=== PATIENT | male | born 1955 | race Hispanic/Latino ===

== ENCOUNTER 2017-12-16 11:01 | Emergency (ER) | payer OTHER ==
[2017-12-16 11:15] VITALS: BMI 19.6
[2017-12-16] MEDS ORDERED: Tdap Vaccine 0.5 ml Vial (10-64 yrs) IM ONE ×2 (11:49→12:57)
[2017-12-16] MEDS ORDERED: Piperacillin/Tazobact 4.5 GM in Sodium Chloride 0.9% 100 ML IVPB ONE (12:00)
[2017-12-16] MEDS ORDERED: Sodium Chloride 0.9% 1,000 ML IV SCH (12:00)
[2017-12-16] MEDS ORDERED: Oxycodone/Acetaminophen 5/325 mg Tab PO STA (12:15)
--- NOTE | 2017-12-16 12:26 | ED PDOC ---
Lower Extremity Pain/Injury Time Seen by Provider: 12/16/17 11:20 Chief Complaint (Nursing): Lower Extremity Problem/Injury Chief Complaint (Provider): Lower Extremity Problem/Injury History Per: Patient History/Exam Limitations: no limitations Onset/Duration Of Symptoms: Days Current Symptoms Are (Timing): Still Present Severity: Severe Additional Complaint(s): Mike Kim is a 62 year old male with a past medical history of COPD who was brought to the ED by EMS for evaluation of worsening left foot and leg pain, onset 2 weeks ago. Patient states that the pain is worsened when bearing weight and reports that he noted a foul smell and wound discharge coming from left toes. Otherwise, patient offers no other medical complaints at this time. Of note, patient is homeless and lives in a halfway. --pt reports occasional non-productive cough (likely due to chronic smoking habit) --pt denied dizziness/lightheadedness, no LOC --pt denied nausea/vomiting/chills/fevers/sweats/abdominal pain --pt denied sob/chest pain/palpitations --pt denied numbness/tingling/urinary or bowel changes --pt denied fall/trauma/sick contact, no travel --pt is here for further eval --no other complaints noted PCP: none? Past Medical History Reviewed: Historical Data, Nursing Documentation, Vital Signs Vital Signs: Last Vital Signs Temp 99.5 F 12/16/17 11:07 Pulse 122 H 12/16/17 11:07 Resp 16 12/16/17 11:07 BP 133/72 12/16/17 11:07 Pulse Ox 94 L 12/16/17 11:07 - Medical History PMH: Arthritis, COPD (09-15-17), Pneumonia Denies: Chronic Kidney Disease - Surgical History Surgical History: Hernia Repair - Family History Family History: States: Unknown Family Hx - Living Arrangements Living Arrangements: Other (homeless) - Social History Current smoker - smoking cessation education provided: Yes Ex-Smoker (has not smoked in the last 12 months): No Alcohol: Social Drugs: Cannabis - Immunization History Hx Tetanus Toxoid Vaccination: No Hx Influenza Vaccination: No Hx Pneumococcal Vaccination: No - Home Medications Home Medications: Ambulatory Orders Medication Instructions Recorded Albuterol Sulfate [Ventolin Hfa] 1 puff IH Q4H #1 inhaler 09/17/17 Azithromycin [Zithromax] 500 mg PO DAILY 3 Days #3 tablet 09/17/17 Fluticasone/Salmeterol 250/50 1 puff IH Q12 #1 inhaler 09/17/17 [Advair Diskus] Methylprednisolone [Medrol Dose See Taper PO DAILY #21 mg 09/17/17 Pack (21 tabs)] - Allergies Allergies/Adverse Reactions: Allergies Allergy/AdvReac Type Severity Reaction Status Date / Time No Known Allergies Allergy Verified 09/15/17 22:29 Review of Systems ROS Statement: Except As Marked, All Systems Reviewed And Found Negative Constitutional: Positive for: Weakness, Malaise. Negative for: Fever, Chills, Sweats Eyes: Negative for: Pain ENT: Negative for: Ear Pain Cardiovascular: Negative for: Chest Pain, Palpitations Respiratory: Positive for: Cough. Negative for: Shortness of Breath, SOB with Exertion Gastrointestinal: Negative for: Nausea, Vomiting, Abdominal Pain, Diarrhea, Other (bowel changes) Genitourinary Male: Negative for: Dysuria, Hematuria, Other (urinary symptoms) Musculoskeletal: Positive for: Leg Pain, Foot Pain, Other (discharge from left toes) Skin: Negative for: Rash Neurological: Negative for: Weakness, Numbness (tingling ) Physical Exam - Reviewed Nursing Documentation Reviewed: Yes Vital Signs Reviewed: Yes (elevated HR/mildly elevated TEMP) - Physical Exam Appears: Positive for: Well (alert/awake, uncomfortable, mild distress due to pain, GCS = 15, oriented x 3, resting in bed; Cooperative), Non-toxic, Uncomfortable Head Exam: Positive for: ATRAUMATIC, NORMAL INSPECTION (mild bitemporal wasting) , NORMOCEPHALIC Skin: Positive for: Normal Color (see extremity description of left foot and lower extremity ), Warm, Dry (with no open sores or wounds, no nikolsky's sign noted elsewhere but left lower forefoot; cap refill ~ 1 sec, no petechiae/pallor ). Negative for: Pallor Eye Exam: Positive for: Normal appearance, EOMI, PERRL, Other (no photophobia, sclera anicteric, no nystagmus). Negative for: Nystagmus ENT: Positive for: Normal ENT Inspection, Other (fair dentitions; mild dry oral mucosa; no drooling/stridor, no exudate/lesions) Neck: Positive for: Normal (intact ROM, no midline tenderness, no nuchal rigidity; no step off), Painless ROM, Supple, Trachea Midline. Negative for: Decreased ROM Cardiovascular/Chest: Positive for: Chest Non Tender, Other (+S1, +S2, + tachy, no m/r/r). Negative for: Murmur Respiratory: Positive for: Normal Breath Sounds, Other (CTA b/l, no w/r/r, no accessory muscle use noted, no tachypenia). Negative for: Crackles, Rales, Rhonchi, Wheezing, Respiratory Distress Pulses-Carotid (L): 2+ Pulses-Carotid (R): 2+ Gastrointestinal/Abdominal: Positive for: Normal Exam, Bowel Sounds, Soft, Other (thin male, no focal tenderness, no masses/rebound/guarding/rigidity, no rosado's sign, no mcburney's point tenderness). Negative for: Tenderness, Mass , Distended, Guarding, Rebound Back: Positive for: Normal Inspection. Negative for: L CVA Tenderness, R CVA Tenderness, Vertebral Tenderness Extremity: Positive for: Normal ROM, Tenderness (positive diffuse tenderness of patients left foot and left lower extremity around regions of skin erythema, no Kimberlee's sign b/l), Capillary Refill (approximately 1 second, neurovascularly intact, muscle stremgth 5/5), Other (left foot: foul odor detected from distal forefoot, visible second left toe is darkened / black consistent with gangrene. Positive pus-like discharge noted from left great toe as well as left third toe with extensive skin swelling / erythema progressing proximally up to left mid tib/fib region. + diffuse left leg/foot tenderness, NO crepitus noted on exam) Neurologic/Psych: Positive for: Alert, alliances consultant II-XII, Oriented (x3), Other (CNII- XII WNL, no facial asymmetries, no slurr speech, oriented x 3, NIH stroke scale ~ 0). Negative for: Motor/Sensory Deficits - Laboratory Results Result Diagrams: 12/16/17 12:45 12/16/17 12:45 Interpretation Of Abn Labs: elevated WBCs, decr NA - ECG ECG: Positive for: Interpreted By Me, Viewed By Me Interpretation Of Abn EKG: Sinus tach at 115 bpm, normal axis, no ectopy, voltage criteria LVH, no st-t changes, ABNL EKG; unchanged compare with old ekg 08/2017 O2 Sat by Pulse Oximetry: 94 (RA) Pulse Ox Interpretation: Normal - Radiology X-Ray: Interpreted by Me, Viewed By Me, Read By Radiologist - Progress ED Course And Treament: Time:11:25 Spoke to podiatry director of flight operations, made aware or patients case. Will come to evaluate patient in ED in an hour. [address] Trivedi for medical admission, made aware, accepted pt for admission under his service Time: 14:30 Podiatry team at bedside providing local wound care. Podiatry is concerned, would like to schedule OR for tomorrow (for I&D, debridement). Due to malfunctioning of [facility] OR, we are unable to provide patient will sterile I&D procedure here. Recommend transfer to [facility] Time: 15:[address] Fernandes of [facility] hospitalists, who will accept/admit patient and recommends contacting [facility] ED for patient arrival. Consulted Dr. Barriga (ED doc at [facility]) who accepted patient for transport to [facility]/ED. Patient is aware of plan and is consenting with transfer. Time: 16:45 Patient will be admitted directly to his hospital bed at [facility]. pt's vital signs are improving pt states his pain is more tolerable pt is made aware of his medical results pt agrees with admission [address]rivedi, and made him aware of pt's transfer to [facility] due to lack of OR capability at [facility] ---- Date of service: 12/16/2017 HISTORY: coughing COMPARISON: No prior. FINDINGS: LUNGS: No active pulmonary disease. PLEURA: No significant pleural effusion identified, no pneumothorax apparent. CARDIOVASCULAR: Atherosclerotic aortic calcifications. Cardiomediastinal silhouette within normal limits. OSSEOUS STRUCTURES: Degenerative changes. VISUALIZED UPPER ABDOMEN: Normal. OTHER FINDINGS: None. IMPRESSION: No active disease. ---- Date of service: 12/16/2017 PROCEDURE: Left Foot Radiographs. HISTORY: r/o osteo/fx/mass/fb COMPARISON: None. FINDINGS: BONES: Questionable deformity and demineralization of the 2nd digit mid and distal phalanges. JOINTS: Normal. SOFT TISSUES: Subcutaneous gas involving the medial/plantar midfoot and forefoot. OTHER FINDINGS: None. IMPRESSION: Heart questionable deformity and demineralization of the 2nd digit mid and distal phalanges with subcutaneous gas as described above highly suspicious for acute osteomyelitis. ---- Date of service: 12/16/2017 PROCEDURE: Left lower extremity venous duplex Doppler. HISTORY: left leg pain, swelling COMPARISON: None available. TECHNIQUE: Common femoral, superficial femoral, popliteal and posterior tibial veins were evaluated. Flow was assessed with color Doppler, compressibility, assessment of phasic flow and augmentation response. FINDINGS: COMMON FEMORAL VEIN: Unremarkable. SUPERFICIAL FEMORAL VEIN: Unremarkable. POPLITEAL VEIN: Unremarkable. POSTERIOR TIBIAL VEIN: Unremarkable. OTHER FINDINGS: Prominent left inguinal lymph node measuring 2.4 x 1.1 x 1.0 cm. IMPRESSION: No evidence of deep venous thrombosis in the left lower extremity. ---- Date of service: 12/16/2017 PROCEDURE: Radiographs of the left tibia and fibula. HISTORY: r/o gas COMPARISON: None available. TECHNIQUE: Frontal and lateral views obtained. FINDINGS: BONES: No fracture or destructive lesion. JOINT SPACES: Unremarkable. OTHER FINDINGS: No subcutaneous emphysema. IMPRESSION: Unremarkable radiographs of the left tibia and fibula. No subcutaneous emphysema. Re-evaluation Time: 16:00 Condition: Re-examined, Improved - Physician Consult Information Time Consulting Physican Contacted: 14:00 Physician Contacted: Marcelino Trivedi (will admit patient) - Critical Care Total Time (In Min): 55 Comments: critical care time: 55min, excluding procedure time, excluding time teaching residents/students/mid-level providers; including initial eval/diagnosis, diagnostic interpretation, re-eval, consultations, final disposition Notes:: Orders: --Blood Type and Screen --EKG --CMP --CRP, High Sensitivity --Magnesium --Phosphorous --CBC --Erythrocyte Sediment --Coag --Chest X-Ray --Adacel 0.5 ml IM --IV Fluids --Percocet 1 ab PO --Vancomycin 250 ml IVPB --Zosyn --Blood Culture --X-Ray Left Foot --Urinalysis --US Lower Extremity Time:11:25 Spoke to podiatry director of flight operations, made aware or patients case. Will come to evaluate patient in ED in an hour. Time: 14:30 Podiatry team at bedside providing local wound care. Team is concerned, would like to schedule OR visit for tomorrow. Due to malfunctioning [facility] OR, we are unable to provide patient will sterile I&D procedure here. Time: 15:[address] Fernandes of [facility] who will accept patient and recommends contacting [facility] ED for patient arrival. Consulted Dr. Barriga who accepted patient for transport to [facility]/ED. Patient is aware of plan and is consenting with transfer. Time: 16:45 Patient will be admitted directly to his hospital bed at [facility]. Medical Decision Making Medical Decision Making: Time:11:20 Assessment/Differential Diagnosis: I have considered all the differential diagnosis regarding pt's chief medical complaints/clinical findings, including but are not limited to: osteo, cellulitis, foreign body, fracture, at risk for sepsis possible onset of diabetes Plan: - imaging - labs - supportive care - observe Scribe Attestation: Documented by Puja Medina, acting as a scribe for Cisco Evans MD. Provider Scribe Attestation: All medical record entries made by the Scribe were at my direction and personally dictated by me. I have reviewed the chart and agree that the record accurately reflects my personal performance of the history, physical exam, medical decision making, and the department course for this patient. I have also personally directed, reviewed, and agree with the discharge instructions and disposition. Disposition - Clinical Impression Clinical Impression: Gangrene of extremity, Cellulitis, leg, Sepsis, Ambulatory plague, Hyponatremia - Patient ED Disposition Is Patient to be Admitted: Transfer of Care Discussed With Dr.: Luis Daniel Fernandes Doctor Will See Patient In The: Hospital Counseled Patient/Family Regarding: Studies Performed, Diagnosis, Rx Given, Smoking Cessation - Disposition Referrals: FAMILY PROVIDER,NO [Primary Care Provider] - Disposition: Transfer of Care (transfer to [facility]) Disposition Time: 16:00 Condition: FAIR Forms: [place] (Albanian) - Pt Status Changed To: Hospital Disposition Of: Inpatient - Admit Certification Admit to Inpatient:: After my assessment, the patient will require hospitalization for at least two midnights. This is because of the severity of symptoms shown, intensity of services needed, and/or the medical risk in this patient being treated as an outpatient.
[2017-12-16] MEDS ORDERED: Oxycodone/Acetaminophen 5/325 mg Tab ONE (12:47)
[2017-12-16] MEDS ORDERED: Vancomycin 1 g Inj ONE (12:57)
--- NOTE | 2017-12-16 12:59 | RAD ---
Date of service: 12/16/2017 PROCEDURE: Left Foot Radiographs. HISTORY: r/o osteo/fx/mass/fb COMPARISON: None. FINDINGS: BONES: Questionable deformity and demineralization of the 2nd digit mid and distal phalanges. JOINTS: Normal. SOFT TISSUES: Subcutaneous gas involving the medial/plantar midfoot and forefoot. OTHER FINDINGS: None. IMPRESSION: Heart questionable deformity and demineralization of the 2nd digit mid and distal phalanges with subcutaneous gas as described above highly suspicious for acute osteomyelitis.
--- NOTE | 2017-12-16 13:00 | RAD ---
Date of service: 12/16/2017 HISTORY: coughing COMPARISON: No prior. FINDINGS: LUNGS: No active pulmonary disease. PLEURA: No significant pleural effusion identified, no pneumothorax apparent. CARDIOVASCULAR: Atherosclerotic aortic calcifications. Cardiomediastinal silhouette within normal limits. OSSEOUS STRUCTURES: Degenerative changes. VISUALIZED UPPER ABDOMEN: Normal. OTHER FINDINGS: None. IMPRESSION: No active disease.
[2017-12-16 13:28] LABS: HEMOGLOBIN 11.5 g/dL (12.0-18.0); LYMPH # 0.4 K/uL (1.0-4.3); LYMPH % 1.4 % (20.0-40.0); MEAN CELL VOLUME 87.1 fl (80.0-94.0); MEAN CORPUSCULAR HEMOGLOBIN 29.9 pg (27.0-31.0); MEAN CORPUSCULAR HGB CONC 34.3 g/dL (33.0-37.0); MEAN PLATELET VOLUME 6.3 fl (7.2-11.7); MONO # 1.9 K/uL (0.0-0.8); MONO % 7.1 % (0.0-10.0); NEUT % 91.5 % (50.0-75.0); PLATELET COUNT 305 K/uL (130-400); RBC 3.84 Mil/uL (4.40-5.90); RED CELL DISTRIBUTION WIDTH 14.4 % (11.5-14.5); WHITE BLOOD COUNT 26.3 K/uL (4.8-10.8)
[2017-12-16 13:32] LABS: ALB/GLOB RATIO 0.8 (1.0-2.1); ALBUMIN 3.2 g/dL (3.5-5.0); ALT/SGPT 17 U/L (21-72); AST/SGOT 19 U/L (17-59); BLOOD UREA NITROGEN 15 mg/dl (9-20); CALCIUM 8.6 mg/dL (8.4-10.2); GFR NON-AFRICAN AMERICAN > 60
[2017-12-16 13:34] LABS: INR 1.4 (0.9-1.2); PARTIAL THROMBOPLASTIN TIME 30.8 Seconds (25.6-37.1); PROTHROMBIN TIME 15.4 Seconds (9.8-13.1)
--- NOTE | 2017-12-16 14:11 | CP.PCM.CON ---
History of Present Illness - History of Present Illness History of Present Illness: Podiatry consult note for attending Dr. Alvarado, 62 year old male with a past medical history of COPD was brought to the ED by EMS for evaluation of worsening left foot and leg pain. Patient states the symptoms started 2 weeks ago, however the pain has now become unbearable. Patient also reports he noticed foul smell and discharge from the left foot. Patient lives at the [facility]. Patient denies any F/N/V/SOB/chills. Review of Systems - Review of Systems All systems: reviewed and no additional remarkable complaints except Review of Systems: As per HPI Past Patient History - Infectious Disease Hx of Infectious Diseases: None - Tetanus Immunizations Tetanus Immunization: Unknown - Past Medical History & Family History Past Medical History?: No - Past Social History Alcohol: Social Drugs: Cannabis - CARDIAC Hx Cardiac Disorders: No - PULMONARY Hx Chronic Obstructive Pulmonary Disease (COPD): Yes (09-15-17) Hx Pneumonia: Yes - NEUROLOGICAL Hx Neurological Disorder: No - HEENT Hx HEENT Problems: Yes (lazy left eye) Hx Cataracts: Yes - RENAL Hx Chronic Kidney Disease: No - ENDOCRINE/METABOLIC Hx Endocrine Disorders: No - HEMATOLOGICAL/ONCOLOGICAL Hx Blood Disorders: No - INTEGUMENTARY Hx Dermatological Problems: No - MUSCULOSKELETAL/RHEUMATOLOGICAL Hx Arthritis: Yes - GASTROINTESTINAL Hx Gastrointestinal Disorders: Yes Other/Comment: Inguinal hernia - GENITOURINARY/GYNECOLOGICAL Hx Genitourinary Disorders: No - PSYCHIATRIC Hx Psychophysiologic Disorder: No Hx Substance Use: Yes (occ marijuana use) - SURGICAL HISTORY Hx Surgeries: Yes (bilateral cataract sx) Other/Comment: PILONIDAL CYST BASE OF THE SPINE REMOVED - ANESTHESIA Hx Anesthesia: No Meds Allergies/Adverse Reactions: Allergies Allergy/AdvReac Type Severity Reaction Status Date / Time No Known Allergies Allergy Verified 09/15/17 22:29 - Medications Medications: Current Medications Sodium Chloride (Sodium Chloride 0.9%) 1,000 mls @ 125 mls/hr IV .Q8H GALI Stop: 12/17/17 11:49 Last Admin: 12/16/17 12:59 Dose: 125 mls/hr Physical Exam - Constitutional Appears: Well, Non-toxic, No Acute Distress - Head Exam Head Exam: ATRAUMATIC, NORMOCEPHALIC - Extremities Exam Additional comments: Bilateral Lower Extremity Exam VASC: DP and PT faintly palpable on the left and 2/4 to the right, TG warm to increased warmth to the left leg extending distally to the entire foot, CFT delayed to 5 seconds to the left, and less than 3 seconds to the right, non- pitting edema present to the left foot NEURO: protective sensation diminished to the left DERM: Left- necrotic left 2nd digit with positive purulent drainage, positive malodor , positive probe to bone, positive for tunneling dorsally, medially and laterally when probed plantar to 2ns MTPJ, maceration noted to the 2nd MTPJ and 2nd met head, positive for fluctuance, erythema extending form the middle of the leg to the entire foot, with increased erythema at the level of the 2nd MTPJ , swelling and gangrenous changes noted to digits 1, 3, 4 and 5, fluctuant hyperkeratotic lesion noted submet 1, toenails X 5- gangrenous changes noted, Right- excoriated lesions diffusely on the right foot and leg MSK: diffuse pain on palpation to the left foot, ankle joint range of motion within normal limits - Neurological Exam Neurological exam: Alert, Oriented x3 - Psychiatric Exam Psychiatric exam: Normal Affect, Normal Mood Results - Vital Signs Recent Vital Signs: Last Vital Signs Temp 99.5 F 12/16/17 11:07 Pulse 122 H 12/16/17 11:07 Resp 16 12/16/17 11:07 BP 133/72 12/16/17 11:07 Pulse Ox 94 L 12/16/17 13:52 - Labs Result Diagrams: 12/16/17 12:45 12/16/17 12:45 Labs: Laboratory Results - last 24 hr 12/16/17 12/16/17 12/16/17 12:45 12:45 12:45 WBC 26.3 H RBC 3.84 L Hgb 11.5 L Hct 33.5 L MCV 87.1 MCH 29.9 MCHC 34.3 RDW 14.4 Plt Count 305 MPV 6.3 L Neut % (Auto) 91.5 H Lymph % (Auto) 1.4 L [place] % (Auto) 7.1 Eos % (Auto) 0.0 Baso % (Auto) 0.0 Neut # (Auto) 24.0 H Lymph # (Auto) 0.4 L [place] # (Auto) 1.9 H Eos # (Auto) 0.0 Baso # (Auto) 0.0 PT 15.4 H INR 1.4 H APTT 30.8 Sodium 128 L Potassium 5.0 Chloride 90 L Carbon Dioxide 30 Anion Gap 13 BUN 15 Creatinine 0.7 L Est GFR ( Amer) > 60 Est GFR (Non-Af Amer) > 60 Random Glucose 107 Calcium 8.6 Phosphorus 2.6 Magnesium 1.9 Total Bilirubin 1.0 AST 19 ALT 17 L Alkaline Phosphatase 83 Total Protein 7.0 Albumin 3.2 L Globulin 3.9 Albumin/Globulin Ratio 0.8 L BBK History Checked 12/16/17 12:45 WBC RBC Hgb Hct MCV MCH MCHC RDW Plt Count MPV Neut % (Auto) Lymph % (Auto) [place] % (Auto) Eos % (Auto) Baso % (Auto) Neut # (Auto) Lymph # (Auto) [place] # (Auto) Eos # (Auto) Baso # (Auto) PT INR APTT Sodium Potassium Chloride Carbon Dioxide Anion Gap BUN Creatinine Est GFR ( Amer) Est GFR (Non-Af Amer) Random Glucose Calcium Phosphorus Magnesium Total Bilirubin AST ALT Alkaline Phosphatase Total Protein Albumin Globulin Albumin/Globulin Ratio BBK History Checked No verified bt Assessment & Plan - Assessment and Plan (Free Text) Assessment: 62 year old male with a past medical history of COPD was brought to the ED by EMS for evaluation left foot pain, with gangrenous changes to the left 2nd toe Plan: Patient seen and evaluated at bedside Plan discussed with attending Dr. Alvarado Chart, Labs and Vitals reviewed- WBC 26.3 ESR- Pending Left Foot X-ray (12/16): deformity, cortical erosions, and demineralization noted of the 2nd middle and distal phalanges, soft tissue emphysema noted medial to the 1st metatarsal head, in the 1st interspace, and plantar to the 2nd metatarsal Tib-Fib X-ray (12/16): no evidence of soft tissue emphysema, pending official read Patient administered Vancomycin 1 gm IV and Zosyn 4.5 g IV in the ED Patient to be taken to the OR on Sunday 7:45 AM for Incision and Drainage, amputation of 2nd left digit with possible amptation of hallux vs. transmetatarsal amputation Patient admitted under medicine- medical clearance required Podiatry will follow patient, and update plan for surgery accordingly Thank you for the consult - Date & Time Date: 12/16/17 Time: 14:35
--- NOTE | 2017-12-16 14:30 | US ---
Date of service: 12/16/2017 PROCEDURE: Left lower extremity venous duplex Doppler. HISTORY: left leg pain, swelling COMPARISON: None available. TECHNIQUE: Common femoral, superficial femoral, popliteal and posterior tibial veins were evaluated. Flow was assessed with color Doppler, compressibility, assessment of phasic flow and augmentation response. FINDINGS: COMMON FEMORAL VEIN: Unremarkable. SUPERFICIAL FEMORAL VEIN: Unremarkable. POPLITEAL VEIN: Unremarkable. POSTERIOR TIBIAL VEIN: Unremarkable. OTHER FINDINGS: Prominent left inguinal lymph node measuring 2.4 x 1.1 x 1.0 cm. IMPRESSION: No evidence of deep venous thrombosis in the left lower extremity.
--- NOTE | 2017-12-16 14:31 | RAD ---
Date of service: 12/16/2017 PROCEDURE: Radiographs of the left tibia and fibula. HISTORY: r/o gas COMPARISON: None available. TECHNIQUE: Frontal and lateral views obtained. FINDINGS: BONES: No fracture or destructive lesion. JOINT SPACES: Unremarkable. OTHER FINDINGS: No subcutaneous emphysema. IMPRESSION: Unremarkable radiographs of the left tibia and fibula. No subcutaneous emphysema.
[2017-12-16 15:24] LABS: BANDS 2 % (0-2); LYMPHOCYTE 4 % (20-50); MONOCYTE 4 % (0-10); NEUTROPHIL 90 % (42-75); TOTAL CELLS COUNTED 100
[2017-12-16 15:25] LABS: PLATELET ESTIMATE NORMAL (NORMAL)
[2017-12-16 16:12] LABS: SQUAMOUS EPITHIAL < 1 /hpf (0-5); URINE BACTERIA RARE (<OCC); URINE BILIRUBIN NEGATIVE (NEGATIVE); URINE BLOOD NEGATIVE (NEGATIVE); URINE CLARITY SLIGHTY-CLOUDY (Clear); URINE COLOR YELLOW (YELLOW); URINE GLUCOSE (UA) NEG (Normal); URINE LEUKOCYTE ESTERASE NEG Leu/uL (Negative); URINE PROTEIN 30 mg/dL (NEGATIVE)
[2017-12-16 17:00] VITALS: BP 110/70; PULSE 86; RESP 19; TEMP 98.6
[2017-12-16 17:12] LABS: ERYTHROCYTE SEDIMENTATION RATE 106 mm/hr (0-20)
[2017-12-16 17:25] VITALS: O2SAT 94
--- NOTE | 2017-12-17 17:48 | CARD ---
APPROVED REPORT Date of service: 12/16/2017 EKG Measurement [id number] <Conclusion> Sinus tachycardia Otherwise normal ECG
== END 2017-12-16 17:00 | disposition short-term general hospital (02) ==
LOC: SUPCPDRO 11:01 → H.ER 11:01 → H.ERHOLD 13:54 → UNDOADMIN 13:54 → H.ER 17:00
DX: I96 Gangrene, not elsewhere classified (principal)
CPT/HCPCS: 71045; 73590; 73630; 80053; 81003; 83735; 84100; 85025; 85610; 85651; 85730; 86140; 86850; 86900; 87040; 90471; 90715; 93005; 93971; 96374; 96375; 99285; J2543; J7030